=== PATIENT | male | born 1990 | race Caucasian/White ===

== ENCOUNTER 2016-02-23 03:27 | Emergency (ER) | payer OTHER ==
[2016-02-23 03:35] VITALS: BP 143/94; PULSE 112; TEMP 98.6; BMI 23.7
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
== END 2016-02-23 04:01 | disposition home or self-care (01) ==
LOC: FER 03:27
PROC: 0HQ1XZZ Repair Face Skin, External Approach (ICD-10-PCS; principal; 2016-02-23)
DX: S01.81XA Laceration without foreign body of other part of head, initial encounter (principal); S00.81XA Abrasion of other part of head, initial encounter; Y00.XXXA Assault by blunt object, initial encounter; Y93.89 Activity, other specified; Y92.9 Unspecified place or not applicable
CPT/HCPCS: 99281-25